=== PATIENT | male | born 1985 | race African-American/Black ===

== ENCOUNTER → 2023-01-16 | Outpatient (CLI) | payer OTHER ==
[~2023-01-16] MED LIST: IOHEXOL 350 MG/ML 100 ML VIAL ONE; SODIUM CHLORIDE 0.9% 100 ML ONE
== END | disposition home or self-care (01) ==
LOC: RADMN 03:18
PROVIDERS: ATTEND Internal Medicine Cardiovascular Disease
DX: M27.2 Inflammatory conditions of jaws (principal)
CPT/HCPCS: 70487; Q9967; J7050